=== PATIENT | male | born 1995 | race Caucasian/White ===

== ENCOUNTER 2017-10-01 13:26 | Emergency (ER) | payer OTHER, SELFPAY ==
[2017-10-01 15:12] VITALS: BP 128/83; PULSE 82; RESP 18; TEMP 37.3; O2SAT 98; BMI 24.3
[2017-10-01 15:31] LABS: UTC Influenza A Antigen Negative (Negative); UTC Influenza B Antigen Negative (Negative)
--- NOTE | 2017-10-01 15:41 | HMH.EDUTC ---
[facility] [place] Disposition Clinical Impression: Viral upper respiratory illness Disposition: Home, Self-Care Condition on Discharge: Good Instructions: DI for Viral Upper Respiratory Infection -- Adult Additional Instructions: * Monitor Temp. Tylenol and/or Ibuprofen as needed. ER if fever is no less than 101 despite alternating Tylenol and Ibuprofen * Encourage fluids, water, Gatorade, powerade, pedialyte if infant/toddler/or child * Warm salt water gargles for throat irritation *Warm fluids *Sore throat lozenges *Sleep elevated *humidifier or vaporizer Lots of rest Increase fluids, water, Gatorade, powerade *Bromfed may cause drowsiness. Know how it effect you or your child. Before driving, caring for small children or sending your child to school *Your throat swab was sent to lab for culture. Those results area typically sent to your primary care physician. Be sure to follow up in 2-3 days if no improvement so they can review those results and treat if necessary If you dont have primary care I recommend you get one, but in the mean time you will have to return to a walk in clinic Follow up IMMEDIATELY for new or worsening of symptoms OR no noticeable improvement over the next 48-72 hours. 911 immediately for any life threatening symptoms such as chest pain or difficulty breathing Prescriptions: Brompheniramine/Pseudoephed/Dm [Bromfed DM Cough Syrup 5mL] 10 ml PO Q4H PRN #200 syrup PRN Reason: Cough Referrals: Gil Hsieh MD [Primary Care Provider] - Time of Disposition: 15:48 Medical Decision Making Vital Signs: 10/01/17 15:12 Temperature 99.1 F Temperature Source Temporal Artery Scan Pulse Rate [Right] 82 Respiratory Rate 18 Blood Pressure [Right Arm] 128/83 Blood Pressure Mean [Right Arm] 98 Blood Pressure Source [Right Arm] Automatic Cuff Blood Pressure Position [Right Arm] Sitting 02 Sat by Pulse Oximetry 98 Oxygen Delivery Method Room Air - Lab Data Lab Results 10/01/17 15:17: Influenza Type A Ag Negative, Influenza Type B Ag Negative - Yung Inquiry Pt receiving controlled substance: No Yung was queried for this patient: No [facility] [place] HPI - General Stated complaint: POSS FLU Mode of Arrival: Ambulatory Source of Information: Patient Limitations: No Limitations Description of Symptoms (Recalled from Triage Doc. by RN): NAUSEA, DIARRHEA, CHILLS BEGAN YESTERDAY HEENT Symptoms (Recalled from RN notes): Yes Resp Symptoms (Recalled from RN notes): No Skin Symptoms (Recalled from RN notes): No MS Symptoms (Recalled from RN notes): No Functional Status (Recalled from RN notes): N - History of Present Illness Provider Complaint: Patient state that he feels like he may have the flu State that he has felt feverish and achy for the last several days and had cough States that he was worried so he came in to get checked - Related Data Previous Rx's Medication Instructions Recorded Brompheniramine/Pseudoephed/Dm 10 ml PO Q4H PRN #200 syrup 10/01/17 [Bromfed DM Cough Syrup 5mL] Allergies Allergy/AdvReac Type Severity Reaction Status Date / Time No Known Allergies Allergy Unverified 09/16/17 14:55 - Worker's Comp Is this a Worker's Comp case?: No [facility] [place] History - *Social History Smoking Status: Current every day smoker Tobacco Type: cigarettes Alcohol Intake: never - Psychiatric History Expresses thoughts of harming self/others: None Suicide Plan Description: No Plan - Constitutional Reports chills, Reports fatigue, Reports fever(s) - Respiratory Reports cough Physical Exam - General General appearance: alert, in no apparent distress - ENT ENT exam: Present: normal exam, normal oropharynx, mucous membranes moist, TM's normal bilaterally, normal external ear exam - Respiratory Respiratory exam: Present: normal lung sounds bilaterally. Absent: respiratory distress - Cardiovascular Cardiovascular exam: Present: regular rate, normal rhythm. Absent: JVD -
--- NOTE | 2017-10-01 15:46 | ED_ITS ---
[facility] [place] Clinical Impression: Viral upper respiratory illness Disposition: Home, Self-Care Condition on Discharge: Good Instructions: DI for Viral Upper Respiratory Infection -- Adult Additional Instructions: * Monitor Temp. Tylenol and/or Ibuprofen as needed. ER if fever is no less than 101 despite alternating Tylenol and Ibuprofen * Encourage fluids, water, Gatorade, powerade, pedialyte if infant/toddler/or child * Warm salt water gargles for throat irritation *Warm fluids *Sore throat lozenges *Sleep elevated *humidifier or vaporizer Lots of rest Increase fluids, water, Gatorade, powerade *Bromfed may cause drowsiness. Know how it effect you or your child. Before driving, caring for small children or sending your child to school *Your throat swab was sent to lab for culture. Those results area typically sent to your primary care physician. Be sure to follow up in 2-3 days if no improvement so they can review those results and treat if necessary If you don? t have primary care I recommend you get one, but in the mean time you will have to return to a walk in clinic Follow up IMMEDIATELY for new or worsening of symptoms OR no noticeable improvement over the next 48-72 hours. 911 immediately for any life threatening symptoms such as chest pain or difficulty breathing Prescriptions: Brompheniramine/Pseudoephed/Dm [Bromfed DM Cough Syrup 5mL] 10 ml PO Q4H PRN # 200 syrup PRN Reason: Cough Referrals: Gil Hsieh MD [Primary Care Provider] - Time of Disposition: 15:48 Medical Decision Making Vital Signs: 10/01/17 15:12 Temperature 99.1 F Temperature Source Temporal Artery Scan Pulse Rate [Right] 82 Respiratory Rate 18 Blood Pressure [Right Arm] 128/83 Blood Pressure Mean [Right Arm] 98 Blood Pressure Source [Right Arm] Automatic Cuff Blood Pressure Position [Right Arm] Sitting 02 Sat by Pulse Oximetry 98 Oxygen Delivery Method Room Air - Lab Data Lab Results 10/01/17 15:17: Influenza Type A Ag Negative, Influenza Type B Ag Negative - Yung Inquiry Pt receiving controlled substance: No Yung was queried for this patient: No [facility] [place]PI - General Stated complaint: POSS FLU Mode of Arrival: Ambulatory Source of Information: Patient Limitations: No Limitations Description of Symptoms (Recalled from Triage Doc. by RN): NAUSEA, DIARRHEA, CHILLS BEGAN YESTERDAY HEENT Symptoms (Recalled from RN notes): Yes Resp Symptoms (Recalled from RN notes): No Skin Symptoms (Recalled from RN notes): No MS Symptoms (Recalled from RN notes): No Functional Status (Recalled from RN notes): N - History of Present Illness Provider Complaint: Patient state that he feels like he may have the flu State that he has felt feverish and achy for the last several days and had cough States that he was worried so he came in to get checked - Related Data Previous Rx's Medication Instructions Recorded Brompheniramine/Pseudoephed/Dm 10 ml PO Q4H PRN #200 syrup 10/01/17 [Bromfed DM Cough Syrup 5mL] Allergies Allergy/AdvReac Type Severity Reaction Status Date / Time No Known Allergies Allergy Unverified 09/16/17 14:55 - Worker's Comp Is this a Worker's Comp case?: No [facility] History - *Social History Smoking Status: Current every day smoker Tobacco Type: cigarettes Alcohol Intake: never - Psychiatric History
== END 2017-10-01 15:55 | disposition home or self-care (01) ==
PROVIDERS: Emergency Provider Nurse Practitioner; Family Provider Emergency Medicine; PCP Emergency Medicine
DX: J06.9 Acute upper respiratory infection, unspecified (principal); F17.210 Nicotine dependence, cigarettes, uncomplicated
CPT/HCPCS: 87276; 87804; 99202

== ENCOUNTER 2024-07-28 08:18 | Emergency (ER) | payer SELFPAY ==
[2024-07-28 08:30] VITALS: BP 129/85; PULSE 85; RESP 20; TEMP 37.1; O2SAT 99; BMI 22.9
--- NOTE | 2024-07-28 08:35 | EXP.UTC ---
Discharge Plan Disposition Patient Disposition: Home, Self-Care Condition: Good Prescriptions Prescriptions: New methocarbamol 500 mg tablet 500 mg PO TID PRN (Reason: muscle spasm) Qty: 12 0RF lidocaine 4 % adhesive patch,medicated 1 patch topical DAILY PRN (Reason: pain) Qty: 5 0RF Rx Instructions: apply patch leave on for 12 hours then remove for 12 hours ibuprofen 600 mg tablet 600 mg PO Q6HP PRN (Reason: Moderate Pain) Qty: 20 0RF Referrals Follow up/Referrals: Federico Caballero DO [Primary Care Provider] - See instructions Activity Restrictions/Add. Instructions Additional Instructions/Restrictions: *Ibuprofen robb 6 hours with meal as needed for pain/inflammation *Not additional anti-inflammatory like motrin, aleve, advil with the above amount of ibuprofen. You can still take Tylenol every 4 hours as needed if you need something else for pain *Ice 20 minutes every 2 hours for the first 48 hours after the initial injury followed by moist heat every 20 minutes 3-4 times a day to affected area *Muscle relaxer every 8 hours as needed for muscle spasms but remember, it WILL cause drowsiness You cannot take it and drive, operate machinery or care for small children. Lidocaine patch as prescribed, place on lower back leave on for 12 hours then remove for 12 hours *Keep this area active, no movement leads to more stiffness, However take it easy and avoid heavy lifting pushing or pulling *Follow up with you family doctor if no improvement for further treatment or any loss of control of bowel or bladder Clinical Impressions Clinical Impression: Low back pain Instructions Patient Instructions: DI for Low Back Pain, Low Back Pain Print Language Print Language: Tunisian Discharge ED Provider: Mela Myrick [facility] General Stated complaint: AO 07/27/24 back pain Mode of Arrival: Ambulatory Source of Information: Patient Time Seen by Provider: 07/28/24 08:35 Description of Symptoms (Recalled from Triage Doc. by RN): LOWER BACK PAIN, TIGHT FEELING IN LOWER BACK, WAS USING A HEAVY HAMMER YESTERDAY HEENT Symptoms (Recalled from RN notes): No Resp Symptoms (Recalled from RN notes): No Skin Symptoms (Recalled from RN notes): No MS Symptoms (Recalled from RN notes): Yes Functional Status (Recalled from RN notes): WNL History of Present Illness Provider Complaint: Patient states he has a bad back from previous injury in 2009 States yesterday he was using a sledge hammer and thinks he may have pulled something in his lower back States feels tight like he is having spasms so today he came in to get it checked Denies trouble with urination, denies loss of control of bowel or bladder Denies fever Denies known injury Related Data Previous Rx's ?Medication ?Instructions ?Recorded ibuprofen 600 mg tablet 600 mg PO Q6HP PRN Moderate Pain 07/28/24 #20 tabs lidocaine 4 % topical patch 1 patch topical DAILY PRN pain #5 07/28/24 ea methocarbamol 500 mg tablet 500 mg PO TID PRN muscle spasm #12 07/28/24 tabs Allergies Allergy/AdvReac Type Severity Reaction Status Date / Time No Known Allergies Allergy Verified 02/23/19 09:22 Worker's Comp Is this a Worker's Comp case?: No [facility] Disclaimer: The information contained in this section may have been updated after the patient was seen, as this information can be updated by other users. Social History Smoking Status: Current every day smoker tobacco type: cigarettes packs per day: 2 alcohol intake: never current occupational status: employed Travel in the last 8 weeks: None ROS Obtained: Yes All systems reviewed & no additional complaints except as documented and Yes Systems reviewed as appropriate & no additional complaints except as documented Constitutional Constitutional: Reports system reviewed and no additional complaints, except as documented and Reports as per HPI ENT Ears, Nose, Mouth, and Throat: Reports system reviewed and no additional complaints, except as documented and Reports as per HPI Cardiovascular Cardiovascular: Reports system reviewed and no additional complaints, except as documented and Reports as per HPI Respiratory Respiratory: Reports system reviewed and no additional complaints, except as documented and Reports as per HPI Gastrointestinal Gastrointestingal: Reports system reviewed and no additional complaints, except as documented and as per HPI Musculoskeletal Musculoskeletal: Reports system reviewed and no additional complaints, except as documented, Reports as per HPI and Reports back pain (pain, spasms in his lower back after using a sledge hammer yesterday) Physical Exam General General appearance: alert and in no apparent distress ENT ENT exam: Present normal exam, normal oropharynx, mucous membranes moist and TM's normal bilaterally Respiratory Respiratory exam: Present normal lung sounds bilaterally; Absent respiratory distress or wheezes Cardiovascular Cardiovascular exam: Present regular rate, normal rhythm and normal heart sounds Abdominal Exam Abdominal exam: Present soft and normal bowel sounds; Absent distention or tenderness Back Exam Back exam: Present tenderness and muscle spasm Back 1 view image: 1. reports spasm like pain that is worse with certain movements Denies radiation of pain Denies loss of control of bowel or bladder Neurological Exam Neurological exam: Present alert, oriented X3 and normal gait Medical Decision Making Medical Records Screening: Per USPSTF and CDC recommendations, given the prevalence of disease in our region, it is our hospital?s policy to screen for HIV and viral Hepatitis for all patients aged 18 and over and those with ongoing risk factors. Yung Inquiry Pt receiving controlled substance: No Yung was queried for this patient: No Vital Signs: 07/28/24 08:30 Temperature 98.7 F Temperature Source Oral Pulse Rate [Left Brachial] 85 Respiratory Rate 20 Blood Pressure [Left Arm] 129/85 Blood Pressure Mean [Left Arm] 99 02 Sat by Pulse Oximetry 99 Medical Decision Narrative: Discussed xray of L spine and patient declined Will try Lidocaine patches, methocarbamol and ibuprofen and have patient follow up with PCP if no improvement or any worsening of symptoms
[2024-07-28 08:48] VITALS: BP 129/85; PULSE 85; RESP 20; TEMP 37.1
== END 2024-07-28 08:49 | disposition home or self-care (01) ==
PROVIDERS: Emergency Provider Nurse Practitioner; PCP Internal Medicine
DX: M54.50 Low back pain, unspecified (principal)
CPT/HCPCS: 99212; G0381

== ENCOUNTER 2024-10-30 12:47 | Emergency (ER) | payer SELFPAY ==
[2024-10-30 12:48] VITALS: BP 173/97; PULSE 114; RESP 16; TEMP 36.6; O2SAT 97; BMI 23.6
[2024-10-30 13:36] LABS: Microscopic, Urine URINE MICROSCOPIC (MICROSCOPIC)
[2024-10-30 13:43] LABS: Appearance,Urine CLEAR (Clear); Bilirubin,Urine Negative (Negative); Blood, Urine Negative (Negative); Color,Urine YELLOW (Yellow); Glucose,Urine (UA) Negative (Negative); Ketones,Urine TRACE (Negative); Leukocyte Esterase,Urine Negative (Negative); Nitrate,Urine Negative (Negative); Protein,Urine Negative (Negative); Specific Gravity, Urine <= 1.005 (1.005-1.030); Urobilinogen,Urine 0.2 EU/dl (0.2)
[2024-10-30 14:02] VITALS: BP 128/80; PULSE 102; O2SAT 100
[2024-10-30 14:08] LABS: Eosinophils # 0.1 K/mm3 (0.0-0.4); Lymphocytes # 1.5 K/mm3 (0.7-4.5); Monocytes # 0.7 K/mm3 (0.1-1.0); Red Cell Distribution Width 13.3 % (11.5-17.5)
--- NOTE | 2024-10-30 14:16 | HMH.EDGENADL ---
Discharge Plan Disposition Patient Disposition: Home, Self-Care Prescriptions Prescriptions: New methocarbamol 500 mg tablet 1,000 mg PO Q8H PRN (Reason: muscle pain and spasm) Qty: 30 0RF lidocaine 5 % adhesive patch,medicated 1 patch topical DAILY PRN (Reason: back pain) Qty: 15 0RF Rx Instructions: leave on most painful area for up to 12 hrs prednisone 20 mg tablet 40 mg PO DAILY 4 Days Qty: 8 0RF Referrals Follow up/Referrals: Provider,Referral, [Primary Care Provider] - See instructions Activity Restrictions/Add. Instructions Additional Instructions/Restrictions: At this time it was felt you are safe to be discharged home. If new or worsening symptoms please do not hesitate to return the emergency department. Please take your medications as prescribed. Clinical Impressions Clinical Impression: Back pain Print Language Print Language: Hungarian Discharge ED Provider: Phani Sanchez General Adult HPI <Phani Sanchez MD - Last Filed: 10/30/24 15:23> General Chief complaint: PAIN Stated complaint: lower back pain, can't urinate Time Seen by Provider: 10/30/24 12:53 Mode of Arrival: Ambulatory Source of Information: Patient Limitations: No Limitations Description of Symptoms (Recalled from ER Triage Doc. by RN): pt presents to ED with c/o inability to urinate. pt reports symptoms began last night. pt reports history of similar issues. bladder scan prior to urination attempt was 300. pt reports lower middle back pain as well. History of Present Illness HPI narrative: Please note that above description of symptoms, in this electronic medical record under categorization of recalled from ER triage doctor by RN are reflective of an initial nursing assessment, however, is not reflective of my full history and physical exam that was personally taken and clarified. Consequentially, this preceding description of symptoms, which may include the patient's categorized chief complaint in the EMR, do not reflect my personal clinical impression, and the ultimate description of history of present illness and patient stated complaints should be deferred to this section of the note. Unless stated otherwise or congruent with this section of the note, additional signs, symptoms, or incongruence should be interpreted as inaccurate with my clinical impression. Related Data Previous Rx's ?Medication ?Instructions ?Recorded lidocaine 5 % topical patch 1 patch topical DAILY PRN back 10/30/24 pain #15 ea methocarbamol 500 mg tablet 1,000 mg (2 x 500 mg) PO Q8H PRN 10/30/24 muscle pain and spasm #30 tabs prednisone 20 mg tablet 40 mg (2 x 20 mg) PO DAILY 4 days 10/30/24 #8 tabs Allergies Allergy/AdvReac Type Severity Reaction Status Date / Time No Known Allergies Allergy Verified 02/23/19 09:22 [facility] <Phani Sanchez MD - Last Filed: 10/30/24 15:23> [facility] Disclaimer: The information contained in this section may have been updated after the patient was seen, as this information can be updated by other users. Social History Smoking Status: Current every day smoker tobacco type: cigarettes packs per day: 2 alcohol intake: never current occupational status: employed Travel in the last 8 weeks: None Have you lived/traveled outside [place] in past 30 days?: No Contact w/someone who lives/traveled outside [place] past 30 days?: No Exposure to someone with infectious disease in past 14 days?: No Do you have a fever (greater than 100.4 F or 38 C)?: No Have you tested positive for COVID-19: No Exposed to someone with COVID-19 in past 14 days?: No Do you have a sore throat?: No Do you have a cough?: No Do you have any weakness?: No Do you have any diarrhea?: No Are you experiencing any unusual bleeding?: No Do you have any muscle aches/pain?: Yes Do you have any abdominal pain?: No Are you experiencing loss of taste or smell?: No Other Medical History Have you received the Flu Vaccine for this season: No Have you received the Pneumonia Vaccine: No <Phani Sanchez MD - Last Filed: 10/30/24 15:23> ROS Obtained: Yes All systems reviewed & no additional complaints except as documented Physical Exam <Phani Sanchez MD - Last Filed: 10/30/24 15:23> General General appearance: alert Head Head exam: atraumatic and normocephalic Eye Eye exam: Present normal appearance, PERRL and EOMI Neck Neck exam: Present normal inspection, full ROM and trachea midline Respiratory Respiratory exam: Absent respiratory distress, wheezes, stridor, accessory muscle use or prolonged expiratory phase Cardiovascular Cardiovascular exam: Present other (Pulses equal symmetric in upper and lower extremities) Abdominal Exam Abdominal exam: Present soft; Absent distention, tenderness or pulsatile mass Extremities Exam Extremities exam: Absent edema Neurological Exam Neurological exam: Present alert, oriented X3 and CN II-XII intact; Absent motor sensory deficit Skin Skin exam: Present warm and dry; Absent diaphoresis or erythema Medical Decision Making <Phani Sanchez MD - Last Filed: 10/30/24 15:23> Medical Records Medical records reviewed: Yes I reviewed the patient's medical records. Screening: Per USPSTF and CDC recommendations, given the prevalence of disease in our region, it is our hospital?s policy to screen for HIV and viral Hepatitis for all patients aged 18 and over and those with ongoing risk factors. Yung Inquiry Pt receiving controlled substance: No Yung was queried for this patient: No Vital Signs: 10/30/24 12:48 10/30/24 14:02 10/30/24 15:06 Temperature 97.8 F Temperature Source Oral Pulse Rate 102 H 93 H Pulse Rate [Left Radial] 114 H Respiratory Rate 16 Blood Pressure 128/80 132/83 Blood Pressure [Right Arm] 173/97 H Blood Pressure Mean [Right Arm] 122 02 Sat by Pulse Oximetry 97 100 98 Oxygen Delivery Method Room Air Room Air Room Air Lab Data Lab Results 10/30/24 12:50: Urine Color Yellow, Urine Appearance Clear, Urine pH 7.0, Ur Specific [place] <= 1.005, Urine Protein Negative, Urine Glucose (UA) Negative, Urine Ketones Trace, Urine Blood Negative, Urine Nitrate Negative, Urine Bilirubin Negative, Urine Urobilinogen 0.2, Ur Leukocyte Esterase Negative, Urine RBC None, Urine WBC Occasional, Ur Squamous Epith Cells Occasional, Urine Bacteria None 10/30/24 14:00: WBC 8.9, RBC 5.45, Hgb 16.4, Hct 48.3, MCV 88.6, MCH 30.1, MCHC 34.0, RDW 13.3, Plt Count 251, MPV 10.6 H, Neut % (Auto) 74.1, Lymph % (Auto) 16.9, [place] % (Auto) 7.6, Eos % (Auto) 0.8, Baso % (Auto) 0.3, Neut # (Auto) 6.6, Lymph # (Auto) 1.5, [place] # (Auto) 0.7, Eos # (Auto) 0.1, Baso # (Auto) 0.0, Sodium 140, Potassium 3.9, Chloride 104, Carbon Dioxide 27, Anion Gap 12.9, BUN 7 L, Creatinine 0.70, Estimated Creat Clear 153, Estimated GFR 132, Est GFR ( Amer) 160, Glucose 87, Calcium 8.8, Total Bilirubin 0.7, AST 32, ALT 29, Alkaline Phosphatase 66, Total Protein 7.1, Albumin 4.6, Globulin 2.5, Albumin/Globulin Ratio 1.8 10/30/24 14:00 10/30/24 14:00 Orders (Tests/Meds): ED MEDICATIONS Discontinued Medications Generic Name Dose Route Start Last Admin Trade Name Freq PRN Reason Stop Dose Admin Methocarbamol 1,500 mg 10/30/24 14:42 10/30/24 14:58 Methocarbamol 500mg Tablet PO 10/30/24 14:43 1,500 mg ONCE ONE Administration Prednisone 40 mg 10/30/24 14:42 10/30/24 14:59 Prednisone 20mg Tab PO 10/30/24 14:43 40 mg ONCE ONE Administration ORDERS Category Date Time Status CBC w/Auto Diff [Complete Blood Count Auto Diff] Stat Lab 10/30/24 14:00 Completed CMP [Comprehensive Metabolic Panel] Stat Lab 10/30/24 14:00 Completed HIV Combo Stat Lab 10/30/24 14:00 Received Hepatitis C Ab Qual. W/ RFX Stat Lab 10/30/24 14:00 Received UA [Urinalysis and Microscopic] Stat Lab 10/30/24 12:50 Completed Medical Decision Narrative: This is a 29-year-old male presenting with chief complaint of my kidneys hurt. States that this has been going on for weeks. He states that he has had problems with his kidneys in the past. Was diagnosed with urinary tract infection when this happened. Has had no fevers, chills, nausea, vomiting, but states that the pain is right in the middle. Denies any history of IV drug abuse, but he does have traumatic history of injury to his back which did not necessitate surgery. Patient urinating without issue, no bowel or bladder incontinence or dysfunction, no lower extremity dysfunction, numbness, tingling, weakness, etc. Has not taken anything for the pain. States that he used to be on Flexeril and gabapentin, but was incarcerated and no longer has these medications prescribed to him. Came in for further evaluation. History was obtained with patient only. On my evaluation, patient does have mild midline thoracolumbar spinal tenderness. No paraspinal tenderness or kidney tenderness to percussion. Abdomen soft, nontender, nondistended. He is ambulatory, neurologically intact. Differential includes radiculopathy, neuropathy, degenerative disc disease, back osteoarthritis, urinary tract infection, pyelonephritis, nephrolithiasis, less likely to be epidural hematoma, epidural abscess, among others. Given Robaxin and prednisone. Urinalysis and labs obtained. Prior to these returning, care handed off to oncoming physician. [facility] [employer] [employer] Tra[employer] disclaimer Much of this encounter note is an electronic purchasing department clerk spoken language to printed text. Electronic purchasing department clerk of the spoken language may permit errors. Although I have reviewed the note, some errors may still exist. <Tonio Hyman MD - Last Filed: 10/30/24 16:12> Vital Signs: 10/30/24 12:48 10/30/24 14:02 10/30/24 15:06 Temperature 97.8 F Temperature Source Oral Pulse Rate 102 H 93 H Pulse Rate [Left Radial] 114 H Respiratory Rate 16 Blood Pressure 128/80 132/83 Blood Pressure [Right Arm] 173/97 H Blood Pressure Mean [Right Arm] 122 02 Sat by Pulse Oximetry 97 100 98 Oxygen Delivery Method Room Air Room Air Room Air Lab Data Lab Results 10/30/24 12:50: Urine Color Yellow, Urine Appearance Clear, Urine pH 7.0, Ur Specific [place] <= 1.005, Urine Protein Negative, Urine Glucose (UA) Negative, Urine Ketones Trace, Urine Blood Negative, Urine Nitrate Negative, Urine Bilirubin Negative, Urine Urobilinogen 0.2, Ur Leukocyte Esterase Negative, Urine RBC None, Urine WBC Occasional, Ur Squamous Epith Cells Occasional, Urine Bacteria None 10/30/24 14:00: WBC 8.9, RBC 5.45, Hgb 16.4, Hct 48.3, MCV 88.6, MCH 30.1, MCHC 34.0, RDW 13.3, Plt Count 251, MPV 10.6 H, Neut % (Auto) 74.1, Lymph % (Auto) 16.9, [place] % (Auto) 7.6, Eos % (Auto) 0.8, Baso % (Auto) 0.3, Neut # (Auto) 6.6, Lymph # (Auto) 1.5, [place] # (Auto) 0.7, Eos # (Auto) 0.1, Baso # (Auto) 0.0, Sodium 140, Potassium 3.9, Chloride 104, Carbon Dioxide 27, Anion Gap 12.9, BUN 7 L, Creatinine 0.70, Estimated Creat Clear 153, Estimated GFR 132, Est GFR ( Amer) 160, Glucose 87, Calcium 8.8, Total Bilirubin 0.7, AST 32, ALT 29, Alkaline Phosphatase 66, Total Protein 7.1, Albumin 4.6, Globulin 2.5, Albumin/Globulin Ratio 1.8 Orders (Tests/Meds): ED MEDICATIONS Discontinued Medications Generic Name Dose Route Start Last Admin Trade Name Freq PRN Reason Stop Dose Admin Methocarbamol 1,500 mg 10/30/24 14:42 10/30/24 14:58 Methocarbamol 500mg Tablet PO 10/30/24 14:43 1,500 mg ONCE ONE Administration Prednisone 40 mg 10/30/24 14:42 10/30/24 14:59 Prednisone 20mg Tab PO 10/30/24 14:43 40 mg ONCE ONE Administration ORDERS Category Date Time Status CBC w/Auto Diff [Complete Blood Count Auto Diff] Stat Lab 10/30/24 14:00 Completed CMP [Comprehensive Metabolic Panel] Stat Lab 10/30/24 14:00 Completed HIV Combo Stat Lab 10/30/24 14:00 Received Hepatitis C Ab Qual. W/ RFX Stat Lab 10/30/24 14:00 Received UA [Urinalysis and Microscopic] Stat Lab 10/30/24 12:50 Completed Medical Decision Narrative: This is a 29-year-old male presenting with chief complaint of my kidneys hurt. States that this has been going on for weeks. He states that he has had problems with his kidneys in the past. Was diagnosed with urinary tract infection when this happened. Has had no fevers, chills, nausea, vomiting, but states that the pain is right in the middle. Denies any history of IV drug abuse, but he does have traumatic history of injury to his back which did not necessitate surgery. Patient urinating without issue, no bowel or bladder incontinence or dysfunction, no lower extremity dysfunction, numbness, tingling, weakness, etc. Has not taken anything for the pain. States that he used to be on Flexeril and gabapentin, but was incarcerated and no longer has these medications prescribed to him. Came in for further evaluation. History was obtained with patient only. On my evaluation, patient does have mild midline thoracolumbar spinal tenderness. No paraspinal tenderness or kidney tenderness to percussion. Abdomen soft, nontender, nondistended. He is ambulatory, neurologically intact. Differential includes radiculopathy, neuropathy, degenerative disc disease, back osteoarthritis, urinary tract infection, pyelonephritis, nephrolithiasis, less likely to be epidural hematoma, epidural abscess, among others. Given Robaxin and prednisone. Urinalysis and labs obtained. Prior to these returning, care handed off to oncoming physician. Tonio Hyman: Upon assumption care patient was hemodynamically stable. Workup reviewed by me, hematologic labs are nonactionable no significant leukocytosis no ELIDA or critical electrolyte abnormality. Urinalysis interpreted by me and not consistent with infection. Per repeat evaluation patient has had chronic lumbar bandlike back pain for over a decade and has been incarcerated recently and has not been able to fill his prescriptions for these medications given that they do not administer controlled substances in assisted. However he is now out. He was mainly concerned that there was nothing seriously wrong with his kidneys for which I see no evidence on this workup. Given that this pain is chronic I will discharge patient with a course of steroids, Robaxin, lidocaine patches and he was given return precautions. [employer] disclaimer Much of this encounter note is an electronic purchasing department clerk spoken language to printed text. Electronic purchasing department clerk of the spoken language may permit errors. Although I have reviewed the note, some errors may still exist. Critical Care <Phani Sanchez MD - Last Filed: 10/30/24 15:23> Critical Care Time Critical Care Time: No
[2024-10-30] MEDS: METHOCARBAMOL 500MG TABLET 1500 MG PO (14:58)
[2024-10-30] MEDS: predniSONE 20MG TAB 40 MG PO (14:59)
[2024-10-30 15:02] LABS: Alanine Aminotransferase 29 U/L (12-78); Albumin Level 4.6 g/dl (3.5-5.0); Albumin/Globulin Ratio 1.8 (1.1-1.8); Alkaline Phosphatase 66 U/L (38-126); Anion Gap 12.9 mEq/L (5-15); Aspartate Amino Transferase 32 U/L (17-59); Bilirubin,Total 0.7 mg/dl (0.2-1.3); Blood Urea Nitrogen 7 mg/dl (9-20); Calcium 8.8 mg/dl (8.4-10.2); Carbon Dioxide 27 mmol/L (22.0-30.0); Chloride 104 mmol/L (98-107); Creatinine Clearance Estimated 153 mL/min (50-200); Estimated Glomerular Filt Rate 132 ml/min (>60); GFR (African American) 160 ML/MIN (>60); Globulin 2.5 g/dL (1.3-3.2); Glucose 87 mg/dl (74-100); Potassium 3.9 mmoL/L (3.5-5.1); Sodium 140 mmol/L (136-145); Total Protein,Serum 7.1 g/dl (6.3-8.2)
[2024-10-30 15:06] VITALS: BP 132/83; PULSE 93; O2SAT 98
[2024-10-30 15:10] LABS: Squamous Epithelial Cell,Urine Occasional #/hpf (0-5); WBC,Urine Occasional #/hpf (0-3)
--- NOTE | 2024-10-30 15:29 | PC.NURSE ---
rounded on patient. he doesnt need anything.
--- NOTE | 2024-10-30 15:52 | PC.NURSE ---
calling lab to check on status of blood work results on pt cbc and hep c labs
[2024-10-30 15:56] LABS: Basophils % 0.3 % (0.1-2.0); Eosinophils % 0.8 % (0.1-12.0); Hematocrit 48.3 % (42.0-52.0); Hemoglobin 16.4 g/dL (14.1-18.0); Lymphocytes % 16.9 % (10-50); Mean Corpuscular Hemoglobin 30.1 pg (27.0-31.2); Mean Corpuscular Volume 88.6 fl (80-94); Mean Platelet Volume 10.6 fl (7.4-10.4); Monocytes % 7.6 % (1.7-9.3); Neutrophils # 6.6 K/mm3 (1.8-7.8); Neutrophils % 74.1 % (37.0-80.0); Platelet Count 251 K/mm3 (142-424); Red Blood Count 5.45 M/mm3 (4.60-6.20); White Blood Count 8.9 K/mm3 (4.8-10.8)
--- NOTE | 2024-10-30 15:57 | PC.NURSE ---
lab states cbc is 2 minutes ,hep c and hiv results is 45 minutes
[2024-10-30 16:22] VITALS: BP 132/83; PULSE 93; RESP 19; TEMP 36.6
[2024-10-30 16:44] LABS: HIV Combo NEGATIVE (Negative)
[2024-10-30 16:52] LABS: Hepatitis C Ab Qual. W/ RFX NEGATIVE (Negative)
== END 2024-10-30 16:22 | disposition home or self-care (01) ==
PROVIDERS: Emergency Provider Emergency Medicine
DX: M54.50 Low back pain, unspecified (principal); R33.9 Retention of urine, unspecified
CPT/HCPCS: 80053; 81001; 85025; 86803; 87389; 99283

== ENCOUNTER 2024-10-31 23:23 | Emergency (ER) | payer SELFPAY ==
[2024-10-31 23:27] VITALS: BP 130/90; PULSE 108; RESP 16; TEMP 36.8; O2SAT 99; BMI 22.8
--- NOTE | 2024-10-31 23:34 | CT_ITS ---
PROCEDURE INFORMATION: Exam: CT Lumbar Spine Without Contrast Exam date and time: 10/31/2024 11:55 PM Age: 29 years old Clinical indication: Low back pain; Additional info: New midline low back pain, numbness in legs TECHNIQUE: Imaging protocol: Computed tomography of the lumbar spine without contrast. Radiation optimization: All CT scans at this facility use at least one of these dose optimization techniques: automated exposure control; mA and/or kV adjustment per patient size (includes targeted exams where dose is matched to clinical indication); or iterative reconstruction. COMPARISON: CT ABDOMEN PELVIS WO CON 10/31/2024 11:52 PM FINDINGS: Bones/joints: No acute fracture. Old traumatic changes involving the anterior inferior L1 vertebral body. Normal alignment. No significant disc bulge or herniation. No severe spinal canal stenosis. No significant neural foraminal narrowing. Soft tissues: Unremarkable. IMPRESSION: No acute findings. No appreciable central canal or foraminal stenosis.
--- NOTE | 2024-10-31 23:34 | CT_ITS ---
PROCEDURE INFORMATION: Exam: CT Abdomen And Pelvis Without Contrast Exam date and time: 10/31/2024 11:52 PM Age: 29 years old Clinical indication: Other: Flank pain; Additional info: Back pain, flank pain TECHNIQUE: Imaging protocol: Computed tomography of the abdomen and pelvis without contrast. Radiation optimization: All CT scans at this facility use at least one of these dose optimization techniques: automated exposure control; mA and/or kV adjustment per patient size (includes targeted exams where dose is matched to clinical indication); or iterative reconstruction. [facility] pelvis w con 03/29/2019 8:10 AM FINDINGS: Lungs: No acute finding. Liver: Normal. No mass. Gallbladder and biliary ducts: Normal. No calcified stones. No ductal dilation. Pancreas: Normal. No ductal dilation. Spleen: Normal. No splenomegaly. Adrenal glands: Normal. No mass. Kidneys and ureters: Normal. No hydronephrosis. Stomach and bowel: Unremarkable. No obstruction. No mucosal thickening. Appendix: No evidence of appendicitis. Intraperitoneal space: Unremarkable. No free air. No significant fluid collection. Vasculature: Unremarkable. No abdominal aortic aneurysm. Lymph nodes: Unremarkable. No enlarged lymph nodes. Urinary bladder: Unremarkable as visualized. Reproductive: Unremarkable as visualized. Bones/joints: Unremarkable. No acute fracture. Soft tissues: There is a very small fat containing umbilical hernia. IMPRESSION: There is no acute process evident within the abdomen or pelvis.
--- NOTE | 2024-10-31 23:38 | ED_ITS ---
Discharge Plan Disposition Patient Disposition: Home, Self-Care Prescriptions Prescriptions: No Action methocarbamol 500 mg tablet 1,000 mg PO Q8H PRN (Reason: muscle pain and spasm) Qty: 30 0RF lidocaine 5 % adhesive patch,medicated 1 patch topical DAILY PRN (Reason: back pain) Qty: 15 0RF Rx Instructions: leave on most painful area for up to 12 hrs prednisone 20 mg tablet 40 mg PO DAILY 4 Days Qty: 8 0RF Referrals Follow up/Referrals: Provider,Referral, [Primary Care Provider] - See instructions Activity Restrictions/Add. Instructions Additional Instructions/Restrictions: Please follow-up with your primary care provider. Please return to the emergency department if you develop any new or worsening symptoms or become concerned for your health. Recommend doing the physical therapy exercises we discussed. Recommend multimodal pain control. Recommend returning if your symptoms worsen as discussed. Clinical Impressions Clinical Impression: Low back pain Stand Alone Forms Stand Alone Forms: Work/School Release Instructions Patient Instructions: DI for Low Back Pain Print Language Print Language: Faroese Discharge ED Provider: Nathan Terry General Adult HPI General Chief complaint: Back Pain/Injury Stated complaint: lower back pain and leg pain Time Seen by Provider: 10/31/24 23:25 History of Present Illness HPI narrative: 29-year-old male with history of distant back injury presents with worsening back pain. He reports that he deals with chronic back pain but this is worse than normal and he starting to have some numbness in his legs and they feel intermittently weak. He was seen here yesterday for back pain but it is worsening. He thought it was his kidneys yesterday. Had a workup including urine and blood work that looked fine. He denies any urinary retention, incontinence, perineal numbness. Reports weakness is proximal in nature. Bilateral in nature. Abnormal sensation is present in the front and the back of the legs. 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 Related Data Previous Rx's ?Medication ?Instructions ?Recorded lidocaine 5 % topical patch 1 patch topical DAILY PRN back 10/30/24 pain #15 ea methocarbamol 500 mg tablet 1,000 mg (2 x 500 mg) PO Q8H PRN 10/30/24 muscle pain and spasm #30 tabs prednisone 20 mg tablet 40 mg (2 x 20 mg) PO DAILY 4 days 10/30/24 #8 tabs Allergies Allergy/AdvReac Type Severity Reaction Status Date / Time No Known Allergies Allergy Verified 02/23/19 09:22 [facility] Disclaimer: The information contained in this section may have been updated after the patient was seen, as this information can be updated by other users. Social History Smoking Status: Current every day smoker tobacco type: cigarettes packs per day: 2 alcohol intake: never current occupational status: employed Travel in the last 8 weeks: None Have you lived/traveled outside US in past 30 days?: No Contact w/someone who lives/traveled outside US past 30 days?: No Exposure to someone with infectious disease in past 14 days?: No Do you have a fever (greater than 100.4 F or 38 C)?: No Have you tested positive for COVID-19: No Exposed to someone with COVID-19 in past 14 days?: No Do you have a sore throat?: No Do you have a cough?: No Do you have any weakness?: No Do you have any diarrhea?: No Are you experiencing any unusual bleeding?: No Do you have any muscle aches/pain?: No Do you have any abdominal pain?: No Are you experiencing loss of taste or smell?: No Other Medical History Have you received the Flu Vaccine for this season: No Have you received the Pneumonia Vaccine: No ROS Obtained: Yes All systems reviewed & no additional complaints except as documented Physical Exam General General appearance: alert and in no apparent distress Head Head exam: atraumatic and normocephalic Eye Eye exam: Present normal appearance, PERRL and EOMI ENT ENT exam: Present normal oropharynx and normal external ear exam Neck Neck exam: Present normal inspection and full ROM Chest Chest inspection: Present normal inspection and symmetric chest wall rise; Absent tenderness Respiratory Respiratory exam: Present normal lung sounds bilaterally; Absent respiratory distress Cardiovascular Cardiovascular exam: Present regular rate and normal rhythm Abdominal Exam Abdominal exam: Present soft; Absent distention, tenderness or guarding Extremities Exam Extremities exam: Present normal inspection; Absent edema or joint swelling Back Exam Back exam: Present normal inspection and tenderness (Midline and paraspinal lumbar tenderness) Neurological Exam Neurological exam: Present alert, oriented X3 and other (Patient reports abnormal sensation in the thighs bilaterally. Patient has 5-5 strength in the proximal and distal bilateral lower extremities.) Psychiatric Psychiatric exam: Present normal affect and normal mood Skin Skin exam: Present warm, dry and normal color Lymphatic Lymphatic Findings: no adenopathy Medical Decision Making Medical Records Medical records reviewed: Yes I reviewed the patient's medical records. Screening: Per USPSTF and CDC recommendations, given the prevalence of disease in our region, it is our hospital?s policy to screen for HIV and viral Hepatitis for all patients aged 18 and over and those with ongoing risk factors. Yung Inquiry Pt receiving controlled substance: No Yung was queried for this patient: No Vital Signs: 10/31/24 23:27 11/01/24 00:51 11/01/24 01:00 Temperature 98.2 F Temperature Source Oral Pulse Rate 80 76 Pulse Rate [Right Brachial] 108 H Respiratory Rate 16 Blood Pressure 132/59 L 137/70 Blood Pressure [Right Arm] 130/90 Blood Pressure Mean 77 79 Blood Pressure Mean [Right Arm] 103 Blood Pressure Source Blood Pressure Source [Right Arm] Automatic Cuff Blood Pressure Position 02 Sat by Pulse Oximetry 99 96 98 Oxygen Delivery Method Room Air 11/01/24 01:15 11/01/24 01:30 11/01/24 01:38 Temperature 98.7 F Temperature Source Oral Pulse Rate 75 78 85 Pulse Rate [Right Brachial] Respiratory Rate 16 Blood Pressure 141/73 H 123/73 123/73 Blood Pressure [Right Arm] Blood Pressure Mean 85 80 Blood Pressure Mean [Right Arm] Blood Pressure Source Automatic Cuff Blood Pressure Source [Right Arm] Blood Pressure Position Sitting 02 Sat by Pulse Oximetry 97 99 Oxygen Delivery Method Room Air Lab Data Lab results reviewed: Yes I reviewed the patient's lab results. Lab Results 10/31/24 23:38: Urine Color Yellow, Urine Appearance Clear, Urine pH 6.0, Ur Specific [place] 1.025, Urine Protein Negative, Urine Glucose (UA) Negative, Urine Ketones Negative, Urine Blood Negative, Urine Nitrate Negative, Urine Bilirubin Negative, Urine Urobilinogen 0.2, Ur Leukocyte Esterase Negative, Urine RBC None, Urine WBC Occasional, Ur Squamous Epith Cells Occasional, Urine Bacteria Trace Orders (Tests/Meds): ED MEDICATIONS Discontinued Medications Generic Name Dose Route Start Last Admin Trade Name Freq PRN Reason Stop Dose Admin Acetaminophen 1,000 mg 10/31/24 23:34 10/31/24 23:46 Acetaminophen 500mg Tab PO 10/31/24 23:35 1,000 mg ONCE ONE Administration Ketorolac Tromethamine 30 mg 10/31/24 23:34 10/31/24 23:45 Ketorolac 30mg/Ml Vial IM 10/31/24 23:35 30 mg ONCE ONE Administration Oxycodone HCl 5 mg 10/31/24 23:34 10/31/24 23:46 Oxycodone 5mg Immediate Release Tablet PO 10/31/24 23:35 5 mg ONCE ONE Administration ORDERS Category Date Time Status CT abdomen pelvis wo con Stat Cat Scan 10/31/24 23:[address] lumbar spine wo con Stat Cat Scan 10/31/24 23:34 Completed UA [Urinalysis and Microscopic] Stat Lab 10/31/24 23:38 Completed Medical Decision Narrative: 29-year-old male with distant history of back trauma several years ago presents for worsening acute on chronic back pain over the last few days now with abnormal sensation in the legs and subjective weakness. History was obtained via interactive discussion with patient family. On arrival, patient is [afebrile, hemodynamically stable, satting appropriately, alert, oriented x4, GCS 15], moving all extremities spontaneously. Full physical exam performed and significant for subjective abnormal sensation in the bilateral lower extremities, no objective weakness noted on exam. Postvoid residual was 0. Differential includes but is not limited to musculoskeletal back pain, disc herniation, sciatica, cauda equina, epidural abscess, epidural hematoma renal pathology, intra-abdominal pathology. Patient was given Tylenol Toradol oxycodone for symptomatic management and correction of underlying abnormalities. Workup initiated including CT abdomen pelvis, CT lumbar spine, UA. On re-evaluation, patient [remains afebrile, HD stable.] Reports improvement in symptoms. Laboratory workup independently interpreted by me and significant for negative urinalysis. Imaging independently interpreted by me and significant for no evidence of renal stones. Patient has an old fracture of the L1 but no acute abnormalities, no obvious cord canal stenosis or disc herniation.. See radiology read for full review of final results. MRI was considered, but deemed unnecessary due to no objective weakness on exam, normal postvoid residual, no perineal numbness, negative CT imaging, no history suggestive of infectious etiology. Given patient history, exam and workup, patient's presentation most likely represents exacerbation of patient's chronic underlying back pain. No objective evidence of cauda equina or other spinal cord pathology at this time. I had a extensive and interactive discussion with patient regarding his presentation. Recommended he return to the ER if he develops any of the signs of cauda equina/spinal cord issues as we discussed in the room. Recommended he take a couple days off work and start doing the physical therapy that he used to do for his back when he had the prior injury. Procedures Risk/Benefits of Procedure(s) Were Explained: Yes Critical Care Critical Care Time Critical Care Time: No
[2024-10-31 23:43] LABS: Appearance,Urine CLEAR (Clear); Bilirubin,Urine Negative (Negative); Blood, Urine Negative (Negative); Color,Urine YELLOW (Yellow); Glucose,Urine (UA) Negative (Negative); Ketones,Urine Negative (Negative); Leukocyte Esterase,Urine Negative (Negative); Microscopic, Urine URINE MICROSCOPIC (MICROSCOPIC); Nitrate,Urine Negative (Negative); Protein,Urine Negative (Negative); Specific Gravity, Urine 1.025 (1.005-1.030); Urobilinogen,Urine 0.2 EU/dl (0.2)
[2024-10-31] MEDS: KETOROLAC 30MG/ML VIAL 30 MG IM (23:45)
[2024-10-31] MEDS: ACETAMINOPHEN 500MG TAB 1000 MG PO (23:46)
[2024-10-31] MEDS: OXYCODONE 5MG IMMEDIATE RELEASE TABLET 5 MG PO (23:46)
[2024-10-31 23:55] LABS: Bacteria,Urine Trace /lpf; Squamous Epithelial Cell,Urine Occasional #/hpf (0-5); WBC,Urine Occasional #/hpf (0-3)
[2024-11-01 00:51] VITALS: BP 132/59; PULSE 80; O2SAT 96
--- NOTE | 2024-11-01 00:51 | PC.NURSE ---
ALERT, ORIENTED, SKIN WARM AND DRY TO TOUCH, PATIENT STATES FEELING MUCH BETTER. UPDATED THE PATIENT WAITING OF CT REPORT.
[2024-11-01 01:00] VITALS: BP 137/70; PULSE 76; O2SAT 98
[2024-11-01 01:15] VITALS: BP 141/73; PULSE 75; O2SAT 97
--- NOTE | 2024-11-01 01:23 | PC.NURSE ---
Resting quietly on stretcher, playing on his phone.
[2024-11-01 01:30] VITALS: BP 123/73; PULSE 78; O2SAT 99
--- NOTE | 2024-11-01 01:35 | PC.NURSE ---
Md in room with patient at this time.
[2024-11-01 01:38] VITALS: BP 123/73; PULSE 85; RESP 16; TEMP 37.1
[2024-11-02 21:11] LABS: Neisseria gonorrhoeae, NAA Negative (Negative)
== END 2024-11-01 01:44 | disposition home or self-care (01) ==
PROVIDERS: Emergency Provider Emergency Medicine
DX: M54.50 Low back pain, unspecified (principal); G89.29 Other chronic pain; R20.2 Paresthesia of skin; R53.1 Weakness; F17.210 Nicotine dependence, cigarettes, uncomplicated
CPT/HCPCS: 72131; 74176; 81001; 87491; 87591; 96372; 99284; J1885

== ENCOUNTER 2024-11-02 07:55 | Emergency (ER) | payer SELFPAY ==
[2024-11-02 07:56] VITALS: BP 135/90; PULSE 98; RESP 16; TEMP 36.9; O2SAT 99; BMI 22.8
--- NOTE | 2024-11-02 08:01 | PC.NURSE ---
dr yap at bedside
--- NOTE | 2024-11-02 08:11 | ED_ITS ---
Discharge Plan Disposition Patient Disposition: Home, Self-Care Chief Complaint: GI Bleed Prescriptions Prescriptions: No Action methocarbamol 500 mg tablet 1,000 mg PO Q8H PRN (Reason: muscle pain and spasm) Qty: 30 0RF lidocaine 5 % adhesive patch,medicated 1 patch topical DAILY PRN (Reason: back pain) Qty: 15 0RF Rx Instructions: leave on most painful area for up to 12 hrs prednisone 20 mg tablet 40 mg PO DAILY 4 Days Qty: 8 0RF Referrals Follow up/Referrals: Provider,Referral, MD [Primary Care Provider] - See instructions Activity Restrictions/Add. Instructions Additional Instructions/Restrictions: At this time it was felt you are safe to be discharged home. If new or worsening symptoms please do not hesitate to return the emergency department. Please follow-up with surgery as soon as you are able, they may need to band this although most hemorrhoids will resolve on their own within a week or so. Please get MiraLAX [id number] and take it as the package directs for you do not have any constipation which will make your hemorrhoids worse. Please do not wipe aggressively as these will make your hemorrhoids bleed. Clinical Impressions Clinical Impression: External hemorrhoid Instructions Patient Instructions: DI for Gastrointestinal Bleeding Print Language Print Language: Bulgarian Discharge ED Provider: Tonio Hyman General Adult HPI General Chief complaint: GI Bleed Stated complaint: bleeding hemorroid Time Seen by Provider: 11/02/24 08:00 Mode of Arrival: Family Vehicle Source of Information: Patient and Medical Record Limitations: No Limitations Description of Symptoms (Recalled from ER Triage Doc. by RN): Pt c/o BRB per rectum with known external hemorrhoid. States he recently was seen here for low back pain and is currently taking prednisone and robaxin. He noted this AM the bleeding was a whole lot . No active bleeding at this time. He put some type of cream on it earlier. He is unsure if it is preperation H. Hemorrhoid is approx the size of a small acorn. History of Present Illness HPI narrative: Patient is a 29-year-old male past medical history of previous hemorrhoids presents emergency department for evaluation of rectal bleeding concerning for hemorrhoids. Onset was acute, over the last 24 hours. Significant with wiping. It is not painful. No other acute complaints at this time Related Data Previous Rx's ?Medication ?Instructions ?Recorded lidocaine 5 % topical patch 1 patch topical DAILY PRN back 10/30/24 pain #15 ea methocarbamol 500 mg tablet 1,000 mg (2 x 500 mg) PO Q8H PRN 10/30/24 muscle pain and spasm #30 tabs prednisone 20 mg tablet 40 mg (2 x 20 mg) PO DAILY 4 days 10/30/24 #8 tabs Allergies Allergy/AdvReac Type Severity Reaction Status Date / Time No Known Allergies Allergy Verified 02/23/19 09:22 [facility] Disclaimer: The information contained in this section may have been updated after the patient was seen, as this information can be updated by other users. Social History Smoking Status: Current every day smoker tobacco type: cigarettes packs per da y: 2 alcohol intake: never current occupational status: employed Travel in the last 8 weeks: None Other Medical History Have you received the Flu Vaccine for this season: No Have you received the Pneumonia Vaccine: No ROS Obtained: Yes Systems reviewed as appropriate & no additional complaints except as documented Physical Exam General General appearance: alert and in no apparent distress Head Head exam: atraumatic and normocephalic Eye Eye exam: Present PERRL ENT ENT exam: Present mucous membranes moist Neck Neck exam: Present normal inspection Chest Chest inspection: Present normal inspection and symmetric chest wall rise Respiratory Respiratory exam: Absent respiratory distress Cardiovascular Cardiovascular exam: Present regular rate Abdominal Exam Abdominal exam: Present soft exam: Present other ([employer]in[employer] Machine Operator present, nonthrombosed external hemorrhoid that is hemostatic.) Extremities Exam Extremities exam: Present normal inspection Neurological Exam Neurological exam: Present alert Psychiatric Psychiatric exam: Present normal affect Skin Skin exam: Present warm and dry Medical Decision Making Medical Records Screening: Per USPSTF and CDC recommendations, given the prevalence of disease in our region, it is our hospital?s policy to screen for HIV and viral Hepatitis for all patients aged 18 and over and those with ongoing risk factors. Yung Inquiry Pt receiving controlled substance: No Vital Signs: 11/02/24 07:56 Temperature 98.4 F Temperature Source Oral Pulse Rate [Right] 98 H Respiratory Rate 16 Blood Pressure [Right Arm] 135/90 Blood Pressure Mean [Right Arm] 105 Blood Pressure Source [Right Arm] Automatic Cuff 02 Sat by Pulse Oximetry 99 Oxygen Delivery Method Room Air Orders (Tests/Meds): ED MEDICATIONS Generic Name Dose Route Start Last Admin Trade Name Freq PRN Reason Stop Dose Admin Phenyleph/Shark Oil/Min Oil/Petrol 1 gm 11/02/24 08:10 Hemorrhoidal Oint 30gm TP 12/02/24 08:09 BIDP PRN Hemorrhoids Medical Decision Narrative: In summary patient is a 29-year-old male past medical history described above presents emergency department for evaluation of rectal bleeding. Patient is hemodynamically stable nontoxic-appearing upon arrival, afebrile. History and physical exam consistent with hemorrhoid. Patient has obvious external hemorrhoid on physical exam that is hemostatic. Preparation H will be applied. Although these likely spontaneously resolve it is large enough that I will refer for possible banding. Workup with labs and imaging was considered however given obvious source will be deferred at this time. Patient is appropriate for discharge and will follow-up with outpatient surgery. Critical Care Critical Care Time Critical Care Time: No
--- NOTE | 2024-11-02 08:16 | PC.NURSE ---
pharmacy notified to send medication to ER as it is not available in ER [facility]
[2024-11-02 08:21] VITALS: BP 136/88; PULSE 92; RESP 18; TEMP 36.9; O2SAT 98
--- NOTE | 2024-11-02 08:23 | PC.NURSE ---
rounded on patient and made him aware that we are awaiting ointment from pharmacy and for gen surgery office to open to see if he can get in today
[2024-11-02] MEDS: HEMORRHOIDAL OINT 30GM TP (08:26)
--- NOTE | 2024-11-02 08:38 | PC.NURSE ---
Called General director of surgery, able to add pt on for Hemorrhoid banding with Dr. Enrrique Evans tomorrow at 1030 am.
== END 2024-11-02 08:48 | disposition home or self-care (01) ==
PROVIDERS: Emergency Provider Emergency Medicine
DX: K64.8 Other hemorrhoids (principal); K62.5 Hemorrhage of anus and rectum
CPT/HCPCS: 99282

== ENCOUNTER 2024-11-03 11:04 | Outpatient (CLI) | payer SELFPAY ==
[2024-11-03 11:48] LABS: Hematocrit 46.9 % (42.0-52.0); Hemoglobin 15.9 g/dL (14.1-18.0)
== END 2024-11-03 23:59 | disposition home or self-care (01) ==
LOC: LAB 11:05
PROVIDERS: Visit Provider Surgery
DX: K64.4 Residual hemorrhoidal skin tags (principal)
CPT/HCPCS: 36415; 85014; 85018

== ENCOUNTER 2025-05-10 07:03 | Emergency (ER) | payer SELFPAY ==
[2025-05-10 07:11] VITALS: BP 139/89; PULSE 75; RESP 18; TEMP 36.6; O2SAT 100; BMI 22.0
--- NOTE | 2025-05-10 07:18 | ED_ITS ---
Discharge Plan Disposition Patient Disposition: Home, Self-Care Prescriptions Prescriptions: New [id number]-fdrotbdcg-GM 3.5-10,000-1 mg/mL-unit/mL-% drops,suspension 4 drp otic (ear) TID 7 Days Qty: 10 0RF No Action methocarbamol 500 mg tablet 1,000 mg PO Q8H PRN (Reason: muscle pain and spasm) Qty: 30 0RF lidocaine 5 % adhesive patch,medicated 1 patch topical DAILY PRN (Reason: back pain) Qty: 15 0RF Rx Instructions: leave on most painful area for up to 12 hrs prednisone 20 mg tablet 40 mg PO DAILY 4 Days Qty: 8 0RF Referrals Follow up/Referrals: Provider,Referral, MD [Primary Care Provider, Medical] - See instructions Activity Restrictions/Add. Instructions Additional Instructions/Restrictions: You had a significant amount of cerumen impaction in your left ear and likely had a superficial injury caused from the tweezers that were put into your ear that subsequently caused an inflammatory/infectious response. Please take the antibiotics/steroids drops as indicated return with any significant worsening of your symptoms. Clinical Impressions Clinical Impression: Acute otitis externa of left ear, Cerumen impaction Print Language Print Language: Turkmen Discharge ED Provider: Esthela Cosby General Adult HPI General Chief complaint: Ear Stated complaint: left ear pain Time Seen by Provider: 05/10/25 07:08 Mode of Arrival: Ambulatory Source of Information: Patient Description of Symptoms (Recalled from ER Triage Doc. by RN): left ear feels clogged. he went mudding this weekend and now cant hear out of his left ear History of Present Illness HPI narrative: Patient is a 30-year-old male presenting today with left ear pain. States he went muddying over the weekend and believes that he got some water/mite into his left ear. Stated that he has had decreased hearing in that ear feeling like there is a seashell around it. His significant other tried to clean out his ear with a instrument. He is having significant pain of the left ear. No fevers or chills. No other past medical history. Related Data Previous Rx's ?Medication ?Instructions ?Recorded lidocaine 5 % topical patch 1 patch topical DAILY PRN back 10/30/24 pain #15 ea methocarbamol 500 mg tablet 1,000 mg (2 x 500 mg) PO Q 8H PRN 10/30/24 muscle pain and spasm #30 tabs prednisone 20 mg tablet 40 mg (2 x 20 mg) PO DAILY 4 days 10/30/24 #8 tabs ujnijhky-[id number]-polaycxtb 3.5 4 drp otic (ear) TID 7 days #10 mL 05/10/25 mg-10,000 unit/mL-1 % ear drops,susp Allergies Allergy/AdvReac Type Severity Reaction Status Date / Time No Known Allergies Allergy Verified 11/03/24 10:29 [facility] Disclaimer: The information contained in this section may have been updated after the patient was seen, as this information can be updated by other users. Medical History History of illicit drug use Surgical History History of placement of ear tubes Hx of oral surgery Family History Other No significant family history Social History Smoking Status: Current every day smoker tobacco type: cigarettes packs per day: 2 alcohol intake: never current occupational status: employed Travel in the last 8 weeks?: None Have you lived/traveled outside US in past 30 days?: No Contact w/someone who lives/traveled outside US past 30 days?: No Exposure to someone with infectious disease in past 14 days?: No Do you have a fever (greater than 100.4 F or 38 C)?: No Have you tested positive for COVID-19?: No Exposed to someone with COVID-19 in past 14 days?: No Do you have a sore throat?: No Do you have a cough?: No Do you have any weakness?: No Do you have any diarrhea?: No Are you experiencing any unusual bleeding?: No Do you have any muscle aches/pain?: No Do you have any abdominal pain?: No Are you experiencing loss of taste or smell?: No Other Medical History Have you received the Flu Vaccine for this season: No Have you received the Pneumonia Vaccine: No ROS Obtained: Yes All systems reviewed & no additional complaints except as documented Physical Exam General General appearance: alert and in no apparent distress ENT ENT exam: Present other (Positive tragus sign, there is inflammation and mild bleeding in the external auditory canal there is also cerumen impaction preventing me from definitively seeing the oh tympanic membrane) Respiratory Respiratory exam: Present normal lung sounds bilaterally Cardiovascular Cardiovascular exam: Present regular rate Neurological Exam Neurological exam: Present alert and oriented X3 Medical Decision Making Medical Records Screening: Per USPSTF and CDC recommendations, given the prevalence of disease in our region, it is our hospital?s policy to screen for HIV and viral Hepatitis for all patients aged 18 and over and those with ongoing risk factors. Yung Inquiry Pt receiving controlled substance: No Vital Signs: 05/10/25 07:11 Temperature 97.9 F Temperature Source Oral Pulse Rate [Right] 75 Respiratory Rate 18 Blood Pressure [Right Arm] 139/89 Blood Pressure Mean [Right Arm] 105 02 Sat by Pulse Oximetry 100 Oxygen Delivery Method Room Air Medical Decision Narrative: 30-year-old with above history and physical. At the moment he has otitis externa possibly has otitis media as well we will get his ear irrigated and reassess. He is not systemically unwell I have no concern for deeper extension of his infection at the moment. Patient was irrigated and a very large amount of cerumen was dislodged but not completely expelled from patient's ear requiring instrumentation to remove. Once removed the patient had complete yazidi of his hearing I took another look at the patient's tympanic membrane which appeared normal there was only external auditory canal inflammatory changes. Drops were prescribed patient was discharged in stable condition. Procedures Miscellaneous Procedure Procedure Performed: Procedure cerumen disimpaction requiring instrumentation Patient was irrigated and subsequently plastic curette was used to remove the dislodged cerumen the very large amount was removed from the patient's ear patient tolerated procedure well. Critical Care Critical Care Time Critical Care Time: No
[2025-05-10 07:37] VITALS: BP 139/89; PULSE 75; RESP 18; TEMP 36.6; O2SAT 100
== END 2025-05-10 07:38 | disposition home or self-care (01) ==
PROVIDERS: Emergency Provider Student in an Organized Health Care Education/Training Program
DX: H60.92 Unspecified otitis externa, left ear (principal); H61.22 Impacted cerumen, left ear
CPT/HCPCS: 99283

== ENCOUNTER 2025-06-21 19:31 | Emergency (ER) | payer SELFPAY ==
[2025-06-21] VITALS (7 sets, daily range): BP systolic 93–140; BP diastolic 57–91; PULSE 69–118; RESP 14–16; TEMP 37–37.1; O2SAT 98–100; BMI 21.2
--- NOTE | 2025-06-21 19:34 | ED_ITS ---
<Statement entered by Hanane Barker DO - 06/23/25 23:45> I was consulted by the PATRICIA, and we discussed the complexity of problems being addressed. I approve the treatment and management plan for this patient's care in the emergency department, thus performing a substantial portion of the medical decision making. Hanane Barker DO Discharge Plan Disposition Patient Disposition: Home, Self-Care Condition: Good Prescriptions Prescriptions: New pantoprazole 40 mg tablet,delayed release (DR/EC) 40 mg PO DAILY Qty: 14 0RF No Action methocarbamol 500 mg tablet 1,000 mg PO Q8H PRN (Reason: muscle pain and spasm) Qty: 30 0RF lidocaine 5 % adhesive patch,medicated 1 patch topical DAILY PRN (Reason: back pain) Qty: 15 0RF Rx Instructions: leave on most painful area for up to 12 hrs prednisone 20 mg tablet 40 mg PO DAILY 4 Days Qty: 8 0RF [id number] 3.5-10,000-1 mg/mL-unit/mL-% drops,suspension 4 drp otic (ear) TID 7 Days Qty: 10 0RF Referrals Follow up/Referrals: Provider,Referral, [Primary Care Provider, Medical] - See instructions Ector Coats II, MD [Staff Physician, Gastroenterology] - See instructions Clinical Impressions Clinical Impression: Rectal bleeding Instructions Patient Instructions: DI for Rectal Bleeding Print Language Print Language: Zambian Discharge ED Provider: Hanane Barker General Adult HPI General Chief complaint: Abdominal Pain Stated complaint: stomach pain, blood in stools Time Seen by Provider: 06/21/25 19:34 History of Present Illness HPI narrative: 30-year-old male with a history of alcoholism and recurrent urinary tract infections presents to the emergency department with complaints of rectal bleeding, abdominal pain, painful urination. He states that he is passing bright red blood with bowel movements. He states that his bowel movements are soft but not diarrhea. He denies fevers, nausea, vomiting. He reports that he has been sober from alcohol for the past 4 months. he denies taking any blood thinner medications. Related Data Previous Rx's ?Medication ?Instructions ?Recorded lidocaine 5 % topical patch 1 patch topical DAILY PRN back 10/30/24 pain #15 ea methocarbamol 500 mg tablet 1,000 mg (2 x 500 mg) PO Q 8H PRN 10/30/24 muscle pain and spasm #30 tabs prednisone 20 mg tablet 40 mg (2 x 20 mg) PO DAILY 4 days 10/30/24 #8 tabs [id number]-[id number]-jtiwvfqxq 3.5 4 drp otic (ear) TID 7 days #10 mL 05/10/25 mg-10,000 unit/mL-1 % ear drops,susp pantoprazole 40 mg tablet,delayed 40 mg PO DAILY #14 t abs 06/21/25 release Allergies Allergy/AdvReac Type Severity Reaction Status Date / Time No Known Allergies Allergy Verified 11/03/24 10:29 [facility] Disclaimer: The information contained in this section may have been updated after the patient was seen, as this information can be updated by other users. Medical History History of illicit drug use Surgical History History of placement of ear tubes Hx of oral surgery Family History Other No significant family history Social History Smoking Status: Current every day smoker tobacco type: cigarettes packs per day: 2 alcohol intake: never current occupational status: employed Travel in the last 8 weeks?: None Have you lived/traveled outside US in past 30 days?: No Contact w/someone who lives/traveled outside US past 30 days?: No Exposure to someone with infectious disease in past 14 days?: No Do you have a fever (greater than 100.4 F or 38 C)?: No Have you tested positive for COVID-19?: No Exposed to someone with COVID-19 in past 14 days?: No Do you have a sore throat?: No Do you have a cough?: No Do you have any weakness?: No Do you have any diarrhea?: No Are you experiencing any unusual bleeding?: No Do you have any muscle aches/pain?: No Do you have any abdominal pain?: No Are you experiencing loss of taste or smell?: No Other Medical History Have you received the Flu Vaccine for this season: No Have you received the Pneumonia Vaccine: No ROS Obtained: Yes other Gastrointestinal Gastrointestingal: Reports abdominal pain, hematochezia and loose stools Genitourinary Male Genitourinary: Reports other (Painful urination) Physical Exam Narrative Physical exam: General: Awake, aware, in no acute distress HEENT: Normocephalic, no evidence of trauma CV: RRR, no murmurs, rubs, or gallops Pulm: CTA bilaterally with no rhonchi, rales, wheezes ABD: Diffuse abdominal tenderness on palpation with normal active bowel sounds. Psych, appropriate mood and affect General General appearance: alert Respiratory Respiratory exam: Present normal lung sounds bilaterally Cardiovascular Cardiovascular exam: Present tachycardia Rectal Exam Rectal exam: Present normal rectal tone and hemorrhoids (Small, noninflamed or thrombosed and no tenderness on palpation) Neurological Exam Neurological exam: Present alert Medical Decision Making Medical Records Screening: Per USPSTF and CDC recommendations, given the prevalence of disease in our region, it is our hospital?s policy to screen for HIV and viral Hepatitis for all patients aged 18 and over and those with ongoing risk factors. Yung Inquiry Pt receiving controlled substance: No Vital Signs: 06/21/25 19:38 06/21/25 19:45 06/21/25 20:00 Temperature 98.8 F Temperature Source Oral Pulse Rate 118 H 96 H Pulse Rate [Left] 107 H Respiratory Rate 16 Blood Pressure 140/91 H 119/83 Blood Pressure [Right Arm] 140/71 Blood Pressure Mean [Right Arm] 94 Blood Pressure Source [Right Arm] Automatic Cuff Blood Pressure Position [Right Arm] Sitting 02 Sat by Pulse Oximetry 100 100 100 Oxygen Delivery Method Room Air 06/21/25 20:30 06/21/25 21:00 06/21/25 21:30 Temperature Temperature Source Pulse Rate 88 86 82 Pulse Rate [Left] Respiratory Rate Blood Pressure 112/73 111/69 93/57 L Blood Pressure [Right Arm] Blood Pressure Mean [Right Arm] Blood Pressure Source [Right Arm] Blood Pressure Position [Right Arm] 02 Sat by Pulse Oximetry 98 98 99 Oxygen Delivery Method Room Air Room Air Room Air Lab Data Lab Results 06/21/25 19:41: WBC 8.3, RBC 5.24, Hgb 15.6, Hct 47.0, MCV 89.7, MCH 29.8, MCHC 33.2, RDW 13.1, Plt Count 251, MPV 10.4, Neut % (Auto) 58.0, Lymph % (Auto) 30.4, [place] % (Auto) 7.4, Eos % (Auto) 3.4, Baso % (Auto) 0.6, Neut # (Auto) 4.8, Lymph # (Auto) 2.5, [place] # (Auto) 0.6, Eos # (Auto) 0.3, Baso # (Auto) 0.1, PT 10.7, INR 0.96, APTT 26.5, Sodium 140, Potassium 4.0, Chloride 102, Carbon Dioxide 26, Anion Gap 16.0 H, BUN 10, Creatinine 0.70, Estimated Creat Clear 137, Estimated GFR 132, Est GFR ( Amer) 159, Glucose 110 H, Calcium 9.1, Magnesium 2.0, Total Bilirubin 0.7, AST 31, ALT 23, Alkaline Phosphatase 53, Total Protein 7.6, Albumin 4.7, Globulin 2.9, Albumin/Globulin Ratio 1.6, Lipase 94 06/21/25 19:55: Urine Color Yellow, Urine Appearance Clear, Urine pH 6.0, Ur Specific [place] <= 1.005, Urine Protein Negative, Urine Glucose (UA) Negative, Urine Ketones Negative, Urine Blood Negative, Urine Nitrate Negative, Urine Bilirubin Negative, Urine Urobilinogen 0.2, Ur Leukocyte Esterase Negative, Urine RBC 3-5, Urine WBC Occasional 06/21/25 20:30: Stool Occult Blood Positive A 06/21/25 19:41 06/21/25 19:41 Orders (Tests/Meds): ED MEDICATIONS Generic Name Dose Route Start Last Admin Trade Name Freq PRN Reason Stop Dose Admin Sodium Chloride 10 ml 06/21/25 20:23 06/21/25 21:01 Sodium Chloride 0.9% 10ml Vial IV 07/21/25 20:22 10 ml NEEDED PRN Administration dilute protonix Discontinued Medications Generic Name Dose Route Start Last Admin Trade Name Freq PRN Reason Stop Dose Admin Dicyclomine HCl 20 mg 06/21/25 21:52 Dicyclomine 20 Mg/2ml Vial IM 06/21/25 21:53 ONCE ONE Sodium Chloride 1,000 mls @ 999 mls/hr 06/21/25 19:52 06/21/25 20:15 Sod Chlor 0.9% 1000ml Bag IV 06/21/25 20:52 999 mls/hr .Q1H1M ONE Administration Iopamidol 75 ml 06/21/25 20:38 06/21/25 20:49 Iopamidol-370 (76%);100ml Bottle IV 06/21/25 20:39 75 ml ONCE ONE Administration Pantoprazole Sodium 40 mg 06/21/25 20:23 06/21/25 21:01 Pantoprazole 40mg Vial IV 06/21/25 20:24 40 mg ONCE ONE Administration Sodium Chloride 10 ml 06/21/25 20:38 06/21/25 20:49 Sodium Chloride 0.9% 10ml Syr (Rad Only) IV 06/21/25 20:39 10 ml ONCE ONE Administration ORDERS Category Date Time Status CT abdomen pelvis w con Stat Cat Scan 06/21/25 19:52 Completed CBC w/Auto Diff [Complete Blood Count Auto Diff] Stat Lab 06/21/25 19:41 Completed CMP [Comprehensive Metabolic Panel] Stat Lab 06/21/25 19:41 Completed Lipase Stat Lab 06/21/25 19:41 Completed Magnesium Stat Lab 06/21/25 19:41 Completed Occult Blood,Stool Stat Lab 06/21/25 20:30 Completed PT/INR [Prothrombin Time INR] Stat Lab 06/21/25 19:41 Completed PTT [Activated Partial Thrombo Time] Stat Lab 06/21/25 19:41 Completed Urinalysis and Microscopic Stat Lab 06/21/25 19:55 Completed Medical Decision Narrative: Initial impression of presenting illness: 30-year-old male with a history of alcoholism presents emergency department with complaints of diffuse abdominal pain, rectal bleeding, painful urination. He reports that he has a history of frequent urinary tract infections. He denies nausea, vomiting, diarrhea but states his stools have been soft. He denies hematuria. He also denies any blood thinner use. Differential diagnosis includes but is not limited to: Urinary tract infection, pyelonephritis, diverticulitis, IBS, bleeding hemorrhoids, anal fissure, gastroenteritis, colitis Patient arrives hemodynamically stable, afebrile, without respiratory distress with vital signs interpreted by myself. Initial physical exam reveals diffuse tenderness to palpation of abdomen with normal active bowel sounds. Patient does complain of bilateral CVA tenderness on palpation. 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 Rest of exam was unremarkable Initial diagnostic plan: Abdominal pain workup including coags, CT of abdomen pelvis with IV contrast, normal saline bolus for hydration Results from initial plan were reviewed and interpreted by myself, pertinent positives include: Patient's Hemoccult was positive. Rest of laboratory studies were nonactionable. Urinalysis was positive for 3-5 red blood cells per high- power field as well as an occasional white blood cell however no bacteria was present. CT of abdomen pelvis with contrast is pending at this time. Interventions in the ED: Patient was given normal saline bolus for hydration as well as Protonix for symptom relief. Patient was made aware of the results and the findings, upon reevaluation patient has remained stable throughout stay, symptoms patient reports the burning sensation has improved after receiving the Protonix however he still complaining of abdominal pain. Will give him a dose of Bentyl while we wait for the results of his CT scan. I updated patient on his laboratory findings thus far and told him that we are waiting on his final CT report. CT of abdomen pelvis with IV contrast were unremarkable. Advised patient that we will discharge with a prescription for Protonix. Also informed him that we will give him contact information for GI provider Dr. Coats and stressed the importance of him contacting their office tomorrow to schedule close outpatient follow-up that would likely include colonoscopy for further evaluation of his symptoms. Directed him to return to the emergency department with worsening abdominal pain, increase in the amount of his bleeding, or fevers. I also advised patient that he should not use NSAIDs such as naproxen or ibuprofen as they can increase his risk of bleeding. Patient is agreeable to the plan of care. Critical Care Critical Care Time Critical Care Time: No
--- NOTE | 2025-06-21 19:52 | CT_ITS ---
PROCEDURE INFORMATION: Exam: CT Abdomen And Pelvis With Contrast Exam date and time: 06/21/2025 8:35 PM Age: 30 years old Clinical indication: Abdominal pain; Additional info: Rlq pain TECHNIQUE: Imaging protocol: Computed tomography of the abdomen and pelvis with contrast. Radiation optimization: All CT scans at this facility use at least one of these dose optimization techniques: automated exposure control; mA and/or kV adjustment per patient size (includes targeted exams where dose is matched to clinical indication); or iterative reconstruction. Contrast material: ISOVUE; Contrast volume: 75 ml; Contrast route: IV; COMPARISON: CT ABDOMEN PELVIS WO CON 10/31/2024 11:52 PM FINDINGS: Lungs: The visualized lung bases demonstrate no focal infiltrates or pleural effusions. Liver: Normal. No mass. Gallbladder and biliary ducts: Normal. No calcified stones. No ductal dilation. Pancreas: Normal. No ductal dilation. Spleen: Normal. No splenomegaly. Adrenal glands: Normal. No mass. Kidneys and ureters: Normal. No hydronephrosis. Stomach and bowel: Unremarkable. No obstruction. No mucosal thickening. Appendix: No evidence of appendicitis. Intraperitoneal space: Unremarkable. No free air. No significant fluid collection. Vasculature: Unremarkable. No abdominal aortic aneurysm. Lymph nodes: Unremarkable. No enlarged lymph nodes. Urinary bladder: Unremarkable as visualized. Reproductive: Unremarkable as visualized. Bones/joints: Unremarkable. No acute fracture. Soft tissues: Unremarkable. IMPRESSION: No acute findings.
[2025-06-21 20:01] LABS: Microscopic, Urine URINE MICROSCOPIC (MICROSCOPIC)
[2025-06-21 20:03] LABS: Hematocrit 47.0 % (42.0-52.0); Hemoglobin 15.6 g/dL (14.1-18.0); Immature Granulocytes % 0.2 %; Mean Corpuscular HGB Conc 33.2 g/dL (31.8-35.4); Mean Corpuscular Hemoglobin 29.8 pg (27.0-31.2); Mean Corpuscular Volume 89.7 fl (80-94); Nucleated Red Blood Cells % 0 %; Platelet Count 251 K/mm3 (142-424); Red Blood Count 5.24 M/mm3 (4.60-6.20); Red Cell Distribution Width-SD 43.0 fL; White Blood Count 8.3 K/mm3 (4.8-10.8)
[2025-06-21 20:04] LABS: Bilirubin,Urine Negative (Negative); Color,Urine YELLOW (Yellow); Glucose,Urine (UA) Negative (Negative); Ketones,Urine Negative (Negative); Leukocyte Esterase,Urine Negative (Negative); PH,Urine 6.0 (5.0-8.5); Protein,Urine Negative (Negative); Specific Gravity, Urine <= 1.005 (1.005-1.030); Urobilinogen,Urine 0.2 EU/dl (0.2)
[2025-06-21 20:07] LABS: Albumin Level 4.7 g/dl (3.5-5.0); Chloride 102 mmol/L (98-107); Potassium 4.0 mmoL/L (3.5-5.1); Sodium 140 mmol/L (136-145)
[2025-06-21 20:09] LABS: Alanine Aminotransferase 23 U/L (12-78); Aspartate Amino Transferase 31 U/L (17-59); Blood Urea Nitrogen 10 mg/dl (9-20); Creatinine Clearance Estimated 137 mL/min (50-200); Creatinine,Serum 0.70 mg/dl (0.66-1.25); Estimated Glomerular Filt Rate 132 ml/min (>60); GFR (African American) 159 ML/MIN (>60)
[2025-06-21 20:10] LABS: Albumin/Globulin Ratio 1.6 (1.1-1.8); Alkaline Phosphatase 53 U/L (38-126); Anion Gap 16.0 mEq/L (5-15); Bilirubin,Total 0.7 mg/dl (0.2-1.3); Calcium 9.1 mg/dl (8.4-10.2); Carbon Dioxide 26 mmol/L (22.0-30.0); Globulin 2.9 g/dL (1.3-3.2); Glucose 110 mg/dl (74-100); Lipase 94 U/L (23-300); Magnesium 2.0 mg/dl (1.6-2.3); Total Protein,Serum 7.6 g/dl (6.3-8.2)
[2025-06-21 20:12] LABS: Activated Partial Thrombo Time 26.5 seconds (22.8-30.6); INR 0.96 (0.9-1.1); Prothrombin Time 10.7 seconds (10.1-12.5)
[2025-06-21] MEDS: 0.9 % SODIUM CHLORIDE 1000ML 1,000 ML 999 ML IV (20:15)
[2025-06-21 20:30] LABS: WBC,Urine Occasional #/hpf (0-3)
[2025-06-21] MEDS: IOPAMIDOL-370 (76%);100ML BOTTLE 75 ML IV (20:49)
[2025-06-21] MEDS: SODIUM CHLORIDE 0.9% 10ML SYR (RAD ONLY) 10 ML IV (20:49)
[2025-06-21] MEDS: SODIUM CHLORIDE 0.9% 10ML VIAL 10 ML IV (21:01)
[2025-06-21] MEDS: PANTOPRAZOLE 40MG VIAL 40 MG IV (21:01)
[2025-06-21 21:19] LABS: Occult Blood,Stool Positive (Negative)
[2025-06-21] MEDS: DICYCLOMINE 20 MG/2ML VIAL IM (22:06)
== END 2025-06-21 22:20 | disposition home or self-care (01) ==
PROVIDERS: Nurse Practitioner Family; Emergency Provider Student in an Organized Health Care Education/Training Program
DX: R10.84 Generalized abdominal pain (principal); K62.5 Hemorrhage of anus and rectum; R30.9 Painful micturition, unspecified; K64.9 Unspecified hemorrhoids; F17.210 Nicotine dependence, cigarettes, uncomplicated
CPT/HCPCS: 74177; 80053; 81001; 82272; 83690; 83735; 85025; 85610; 85730; 96361; 96372; 96374; 99285; G0328; J0500; J2470; J7030; Q9967

== ENCOUNTER 2025-08-18 19:19 | Outpatient (CLI) | payer OTHER, SELFPAY ==
[2025-08-18 20:13] LABS: Coronavirus 19, PCR Not Detected (NotDetected); Influenza A, PCR Not Detected (NotDetected); Influenza B, PCR Not Detected (NotDetected)
== END 2025-08-18 23:59 ==
LOC: LAB.DROPOF 08-19 10:39
PROVIDERS: Visit Provider Student in an Organized Health Care Education/Training Program
DX: J06.9 Acute upper respiratory infection, unspecified (principal)
CPT/HCPCS: 87636

== ENCOUNTER 2025-09-13 23:00 | Emergency (ER) | payer OTHER, SELFPAY ==
[2025-09-13 23:09] VITALS: BP 123/77; PULSE 108; RESP 16; TEMP 36.8; O2SAT 99; BMI 22.8
--- NOTE | 2025-09-13 23:11 | XR_ITS ---
PROCEDURE INFORMATION: Exam: XR Left Knee Exam date and time: 09/13/2025 11:27 PM Age: 30 years old Clinical indication: Pain; Knee; Left; Additional info: Fall on patella TECHNIQUE: Imaging protocol: Radiologic exam of the left knee. Views: 4 or more views. Total images: 4 COMPARISON: No relevant prior studies available. FINDINGS: Bones/joints: No acute fracture, joint dislocation, or joint effusion. No concerning bone lesions. Unremarkable joint spaces. Soft tissues: Unremarkable soft tissues. Notes: Limited by extrinsic artifact from clothing. IMPRESSION: Negative left knee.
--- NOTE | 2025-09-13 23:13 | HMH.EDGENADL ---
Discharge Plan Disposition Patient Disposition: Home, Self-Care Prescriptions Prescriptions: New methocarbamol 500 mg tablet 1,000 mg PO Q6H PRN (Reason: pain) Qty: 30 0RF lidocaine 5 % adhesive patch,medicated 1 patch topical DAILY PRN (Reason: pain) Qty: 30 0RF Rx Instructions: leave on most painful area for up to 12 hrs No Action Vraylar 1.5 mg capsule 1.5 mg PO DAILY Qty: 30 2RF cyclobenzaprine 5 mg tablet 5 mg PO HS PRN (Reason: muscle spasm) Qty: 30 2RF cyclobenzaprine 10 mg tablet 10 mg PO TID Qty: 90 0RF pantoprazole 40 mg tablet,delayed release (DR/EC) 40 mg PO DAILY Qty: 30 2RF dicyclomine 10 mg capsule 10 mg PO QID PRN (Reason: abdominal pain) Qty: 120 2RF sodium,potassium,mag sulfates [Suprep Bowel Prep Kit] 17.5-3.13-1.6 gram recon soln See Rx Instructions PO .COMPLEX Qty: 354 0RF Rx Instructions: DILUTE; drink full amount early evening before AND next morning at least 4-5 hr before procedure; follow w 960 mL water PO Referrals Follow up/Referrals: Ismael Moore DO [Staff Physician, Orthopedics] - See instructions Saravanan Cummings DO [Primary Care Provider, Family Practice] - See instructions Activity Restrictions/Add. Instructions Additional Instructions/Restrictions: Please Tylenol most relaxers as needed recommend following up with your PCP our orthopedist Dr. Moore if your symptoms worsen or do not improve. Recommend rest, ice, compression and elevation. Clinical Impressions Clinical Impression: Injury of knee, left Qualifiers: Encounter type: initial encounter Qualified Code(s): S89.92XA - Unspecified injury of left lower leg, initial encounter Stand Alone Forms Stand Alone Forms: Work/School Release Print Language Print Language: Tuvaluan Discharge ED Provider: Nathan Terry General Adult HPI General Chief complaint: Extremity Injury, Lower Stated complaint: AO 09/13/255 injury left knee Time Seen by Provider: 09/13/25 23:00 History of Present Illness HPI narrative: 40 male without significant past medical history presents for left knee pain. Patient fell and struck his left knee directly on the patella against a corner of a concrete pillar. He is able to put weight on the knee but it hurts significantly. Reports it feels locally numb over the top of the patella. Able to do straight leg raise but with pain. Related Data Previous Rx's ?Medication ?Instructions ?Recorded dicyclomine 10 mg capsule 10 mg PO QID PRN abdominal pain 06/28/25 #120 caps pantoprazole 40 mg tablet,delayed 40 mg PO DAILY #30 tabs 06/28/25 release sodium,potassium,mag sulfates 17.5 See Rx Instructions PO .COMPLEX 08/09/25 gram-3.13 gram-1.6 gram oral soln #354 mL (Suprep Bowel Prep Kit) cariprazine 1.5 mg capsule 1.5 mg PO DAILY #30 caps 08/30/25 (Vraylar) cyclobenzaprine 5 mg tablet 5 mg PO HS PRN muscle spasm #30 08/30/25 tabs cyclobenzaprine 10 mg tablet 10 mg PO TID #90 tabs 09/07/25 lidocaine 5 % topical patch 1 patch topical DAILY PRN pain #30 09/13/25 ea methocarbamol 500 mg tablet 1,000 mg (2 x 500 mg) PO Q6H PRN 09/13/25 pain #30 tabs Allergies Allergy/AdvReac Type Severity Reaction Status Date / Time Penicillins Allergy Mild Other Verified 09/07/25 09:55 [facility] Disclaimer: The information contained in this section may have been updated after the patient was seen, as this information can be updated by other users. Medical History History of illicit drug use Surgical History History of placement of ear tubes Hx of oral surgery Family History Other No significant family history Social History Smoking Status: Never smoker alcohol intake: never current occupational status: employed Travel in the last 8 weeks?: None Other Medical History Have you received the Flu Vaccine for this season: No Have you received the Pneumonia Vaccine: Yes ROS Obtained: Yes All systems reviewed & no additional complaints except as documented Physical Exam General General appearance: alert and in no apparent distress Head Head exam: atraumatic and normocephalic Eye Eye exam: Present normal appearance, PERRL and EOMI ENT ENT exam: Present normal oropharynx and normal external ear exam Neck Neck exam: Present normal inspection and full ROM Chest Chest inspection: Present normal inspection and symmetric chest wall rise; Absent tenderness Respiratory Respiratory exam: Present normal lung sounds bilaterally; Absent respiratory distress Cardiovascular Cardiovascular exam: Present regular rate and normal rhythm Abdominal Exam Abdominal exam: Present soft; Absent distention, tenderness or guarding Extremities Exam Extremities exam: Present other (Erythema and bruising over the left patella. Intact straight leg raise with pain. Tenderness over the patella, no tenderness over the fibula or ankle. Patient able to bear weight. Ligamentous exam stable.); Absent edema or joint swelling Back Exam Back exam: Present normal inspection; Absent tenderness Neurological Exam Neurological exam: Present alert and oriented X3; Absent motor sensory deficit Psychiatric Psychiatric exam: Present normal affect and normal mood Skin Skin exam: Present warm, dry and normal color Lymphatic Lymphatic Findings: no adenopathy Medical Decision Making Medical Records Medical records reviewed: Yes I reviewed the patient's medical records. Screening: Per USPSTF and CDC recommendations, given the prevalence of disease in our region, it is our hospital?s policy to screen for HIV and viral Hepatitis for all patients aged 18 and over and those with ongoing risk factors. Yugn Inquiry Pt receiving controlled substance: No Yung was queried for this patient: No Vital Signs: 09/13/25 23:09 09/14/25 00:14 Temperature 98.2 F 98.2 F Temperature Source Oral Oral Pulse Rate 100 H Pulse Rate [Right Radial] 108 H Respiratory Rate 16 17 Blood Pressure 123/77 Blood Pressure [Left arm] 123/77 Blood Pressure Mean [Left arm] 92 Blood Pressure Source Automatic Cuff Blood Pressure Source [Left arm] Automatic Cuff Blood Pressure Position Sitting Blood Pressure Position [Left arm] Sitting 02 Sat by Pulse Oximetry 99 Oxygen Delivery Method Room Air Room Air Lab Data Lab results reviewed: Yes I reviewed the patient's lab results. Orders (Tests/Meds): ED MEDICATIONS Discontinued Medications Generic Name Dose Route Start Last Admin Trade Name Freq PRN Reason Stop Dose Admin Acetaminophen 1,000 mg 09/13/25 23:11 09/13/25 23:20 Acetaminophen 500mg Tab PO 09/13/25 23:12 1,000 mg ONCE ONE Administration Ibuprofen 600 mg 09/13/25 23:11 09/13/25 23:20 Ibuprofen 600 Mg Tablet PO 09/13/25 23:12 600 mg ONCE ONE Administration ORDERS Category Date Time Status Knee XR left 4 views [XR knee LT 4V] Stat Exams 09/13/25 23:11 Completed Medical Decision Narrative: 30-year-old male without significant past medical history presents for left knee pain after falling onto his patella. History was obtained via interactive discussion with patient, family, chart review. On arrival, patient is [afebrile, hemodynamically stable, satting appropriately, alert, oriented x4, GCS 15], moving all extremities spontaneously. Full physical exam performed and significant for findings as documented above, no evidence of ligamentous or tendon rupture. Differential includes but is not limited to fracture, dislocation, ligamentous/tendon strain/rupture. Patient was given Tylenol ibuprofen and Robaxin for symptomatic management and correction of underlying abnormalities. Workup initiated including 4 view of the left knee. On re-evaluation, patient [remains afebrile, HD stable.] Imaging independently interpreted by me and significant for no evidence of acute fracture. See radiology read for full review of final results. CT scan was considered, but deemed unnecessary due to low concern for fracture, patient able to bear weight, intact ligamentous exam. Given patient history, exam and workup, patient's presentation most likely represents bruising to the left knee. Patient was sent with a prescription for Robaxin and given an John wrap. Patient was encouraged to follow-up with PCP/Moore if symptoms worsen or do not improve as he may require MRI. Procedures Risk/Benefits of Procedure(s) Were Explained: Yes Critical Care Critical Care Time Critical Care Time: No
[2025-09-13] MEDS: IBUPROFEN 600 MG TABLET PO (23:20)
[2025-09-13] MEDS: ACETAMINOPHEN 500MG TAB 1000 MG PO (23:20)
[2025-09-14 00:14] VITALS: BP 123/77; PULSE 100; RESP 17; TEMP 36.8; O2SAT 99
== END 2025-09-14 00:15 | disposition home or self-care (01) ==
PROVIDERS: Emergency Provider Emergency Medicine; PCP Student in an Organized Health Care Education/Training Program
DX: S89.92XA Unspecified injury of left lower leg, initial encounter (principal); W01.198A Fall on same level from slipping, tripping and stumbling with subsequent striking against other object, initial encounter
CPT/HCPCS: 73564; 99283; 99284

== ENCOUNTER 2025-09-15 12:02 | Outpatient (CLI) | payer OTHER, SELFPAY ==
--- NOTE | 2025-09-15 13:00 | MR_ITS ---
FINAL REPORT CLINICAL HISTORY: hx of lumbar fractures, persistent/worsening LE pa COMPARISON: None FINDINGS: Multiplanar MR imaging of the lumbar spine was performed without contrast. On the sagittal T2-weighted images, there is abnormal decreased signal in the L1-2 disc with loss of disc space height. There is an indentation of the inferior endplate of L1, that likely represents a small fracture. No acute bone marrow edema is identified to suggest an acute fracture. There are mild hypertrophic changes anteriorly at this level. The vertebral alignment is normal. L1-2: There is no significant canal stenosis or neural foraminal narrowing. L2-3: There is no significant canal stenosis or neural foraminal narrowing. L3-4: There is no significant canal stenosis or neural foraminal narrowing. L4-5: There is no significant canal stenosis or neural foraminal narrowing. L5-S1: There is no significant canal stenosis or neural foraminal narrowing. IMPRESSION: There is no significant canal stenosis or neural foraminal narrowing. Loss of height and decreased signal in the L1-2 disc, with indentation of the inferior endplate of L1 that likely represents a chronic fracture. No acute bone marrow edema is identified. Reviewed, Interpreted and Dictated by Pasquale Patel MD Transcribed by Sameera Lyles Authenticated and [facility]
== END 2025-09-15 23:59 | disposition home or self-care (01) ==
LOC: RAD 12:02
PROVIDERS: PCP Student in an Organized Health Care Education/Training Program; Visit Provider Student in an Organized Health Care Education/Training Program
DX: M84.48XA Pathological fracture, other site, initial encounter for fracture (principal)
CPT/HCPCS: 72148